=== PATIENT | male | born 1955 | race Caucasian/White ===

== ENCOUNTER 2016-09-24 05:44 | Observation (INO) | payer OTHER ==
[2016-09-19 15:41] LABS: HEMOGLOBIN 14.1 g/dL (13.6-17.8)
[2016-09-19 15:42] LABS: HEMATOCRIT 42.9 % (40.0-51.0)
[2016-09-19 15:59] LABS: CHLORIDE, SERUM 104 MMOL/L (96-112); CO2 (CARBON DIOXIDE) 30 MMOL/L (24-34); CREATININE 0.96 MG/DL (0.70-1.30); GFR AFRICAN AMERICAN 97 ML/MIN (>=60); GFR NON AFRICAN AMERICAN 84 ML/MIN (>=60); GLUCOSE, SERUM 74 MG/DL (60-99); POTASSIUM, SERUM 4.4 MMOL/L (3.5-5.3); SODIUM, SERUM 141 MMOL/L (135-148)
[2016-09-19 16:00] LABS: BUN (BLOOD UREA NITROGEN) 16 MG/DL (6-23)
--- NOTE | ~2016-09-24 | OP ---
Record Of Operation [facility] [address] [place]. [address] NAME: LORENE DUONG : 51 STATUS : ADM IN PAT#: [id number] AGE: 61 ADM/REG DATE : 09/24/16 MR#: [id number] REPORT SERV DATE: 09/25/16 DICTATED BY: JUAN J ECHEVARRIA II DATE: 09/25/16 REPORT STATUS : Draft TRANSCRIBED BY: MODL DATE: 09/25/16 DATE OF PROCEDURE: 09/24/2016 PREOPERATIVE DIAGNOSES: 1. Left lower extremity radiculopathy. 2. Remote history of L5-S1 laminectomy. 3. L4-5 stenosis, L5-S1 stenosis. POSTOPERATIVE DIAGNOSES: 1. Left lower extremity radiculopathy. 2. Remote history of L5-S1 laminectomy. 3. L4-5 stenosis, L5-S1 stenosis. PROCEDURE: 1. Revision laminectomy, L5-S1. 2. Laminectomy, L4-L5. 3. Use of the microscope and stereotactic spinal imaging. SURGEON: Juan J Echevarria M.D. FLUIDS: 1100 mL LR. ESTIMATED BLOOD LOSS: 30 mL. DRAINS: One drain. COMPLICATIONS: No complications. ANTIBIOTIC: Preoperatively. PREOPERATIVE HISTORY: This is a very friendly 61-year-old gentleman, who reports significant pain radiating into the left buttock, left leg, and into the lateral aspect of the leg primarily. He gets occasional pain in the calf. We discussed the pros and cons of surgery. DESCRIPTION OF PROCEDURE: After informed consent was obtained, the patient was brought to the operating room at his request and general anesthesia achieved. He was placed in the prone position, and the back was prepped and draped in a sterile fashion. The stereotactic spinal pin was placed into the right iliac crest, followed by completion of the intraoperative CT scan. Next, the minimally invasive incision was performed and the minimally invasive quadrant retractor placed. The microscope was then brought into place, and under microscopic visualization, the L4-L5 level was addressed with the high-speed bur. The facet capsule was maintained. The spinolaminar junction was now taken down with the high-speed bur, Kerrison rongeurs, and the curettes. The hypertrophic ligamentum flavum was identified and removed from the central canal. The Kerrison rongeurs were used to perform partial facetectomies to decompress the L5 nerve roots bilaterally. The L5 nerve roots were now found to be acceptably decompressed, following removal of portions of the facets and the Record Of Operation [address] [address] NAME: LORENE DUONG : 51 STATUS : ADM IN PAT#: [id number] AGE: 61 ADM/REG DATE : 09/24/16 MR#: [id number] REPORT SERV DATE: 09/25/16 DICTATED BY: JUAN J ECHEVARRIA II DATE: 09/25/16 REPORT STATUS : Draft TRANSCRIBED BY: MARLENA DATE: 09/25/16 majority of the ligamentum flavum. Next, we worked down to the L5-S1 level where the revision laminectomy was performed. We used a high-speed juli to remove additional facet on the left. The central canal was now identified. There was minimal scarring. The L5 nerve root was now found to be significantly compressed in the foraminal zone from the superior articular facet. We were able to work out into the foraminal zone and decompress the L5 nerve root. The S1 nerve root had moderate compression from the facet and some ligamentum flavum. The compression was now alleviated. At this point, the area was irrigated. Hemostasis was confirmed except for some mild cancellous bone bleeding, for which a deep drain was placed. Standard closure was performed, and the patient was extubated and transferred to PACU in stable condition. HECTOR/MARLENA Juan J Echevarria II, M.D. / [id number]
[~2016-09-24 05:44] MED LIST: ALAVERT10 MG PO; AMIT25 PO; ASA5GR PO; ASABAYER PO; ATEN25 PO; CELEXA20 PO; COREG3 PO; COREG6 PO; CRANBERRY300 MG OR; FISH-EPA1000 MG PO; HYGROTON 25 MG25 MG PO; IMDUR30 PO; KEPPRA750 MG PO; L20 PO; MAGOX4 PO; METHOC500B PO; MYCOSOINT TOP; NEUR300 PO; NEUR800 PO; NITROSTAT0.4 MG SL; NORCO1 TAB PO; OMEPRAZOLE PO; P20 PO; PLAVIX PO; POTASSIUM PO; PRILO PO; PRIN2.5 PO; PROAIR HFA INH; RAPAFLO4 MG PO; RAPAFLO8 MG PO; SYMBICORT 160/41 INH INH; TRAZODONE150 MG PO; ULTRAM50 PO; ZANAFLEX 4 MG TA4 MG PO; ZESTRIL10 MG PO; ZESTRIL2.5 MG PO; ZOCOR40 PO; [UNRECOGNIZED DRUG - OTHER] PO
[2016-09-25] MEDS ORDERED: PERCOCET 10/3251 TAB PO (09:32)
[2016-09-25] MEDS ORDERED: V2 PO (09:32)
[2017-01-02] MEDS ORDERED: FLEX PO (12:07)
[2017-02-05] MEDS ORDERED: NORCO1 TA2 PO (15:04)
[2017-02-05] MEDS ORDERED: FLONASE NAS (15:04)
[2017-02-05] MEDS ORDERED: ASA5GR PO (15:04)
[2017-02-05] MEDS ORDERED: PRILO PO (15:05)
[2017-02-05] MEDS ORDERED: IMDUR30 PO (15:05)
[2017-02-05] MEDS ORDERED: FLOMAX4 PO (15:06)
[2017-02-05] MEDS ORDERED: VITAMIN B-122500 MCG SL (15:06)
[2017-02-05] MEDS ORDERED: KLOR-CON 1010 MEQ PO (15:06)
[2017-02-05] MEDS ORDERED: VITAMIN D31000 UNIT PO (15:07)
[2017-03-05] MEDS ORDERED: [UNRECOGNIZED DRUG - OTHER] PO (06:55)
[2017-03-06] MEDS ORDERED: PLAVIX PO (10:37)
[2017-03-06] MEDS ORDERED: MULTIVITAMI1 PO (10:38)
== END 2016-09-25 17:31 | disposition home or self-care (01) ==
LOC: SDC 05:44 → SDC/OF 11:00 → 3SO 12:53
PROVIDERS: Orthopaedic Surgery
PROC: 01NB0ZZ Release Lumbar Nerve, Open Approach (ICD-10-PCS; principal; 2016-09-24 07:00)
DX: M48.06 Spinal stenosis, lumbar region (principal); M48.07 Spinal stenosis, lumbosacral region; M54.16 Radiculopathy, lumbar region; I25.2 Old myocardial infarction; M19.90 Unspecified osteoarthritis, unspecified site; H10.10 Acute atopic conjunctivitis, unspecified eye; J45.909 Unspecified asthma, uncomplicated; G47.33 Obstructive sleep apnea (adult) (pediatric); I25.10 Atherosclerotic heart disease of native coronary artery without angina pectoris; E78.00 Pure hypercholesterolemia, unspecified; H91.90 Unspecified hearing loss, unspecified ear; M10.9 Gout, unspecified; K21.9 Gastro-esophageal reflux disease without esophagitis; K44.9 Diaphragmatic hernia without obstruction or gangrene; F41.9 Anxiety disorder, unspecified; F32.9 Major depressive disorder, single episode, unspecified; I10 Essential (primary) hypertension; Z88.0 Allergy status to penicillin; Z79.82 Long term (current) use of aspirin; Z79.899 Other long term (current) drug therapy; Z98.890 Other specified postprocedural states; Z83.3 Family history of diabetes mellitus; Z82.49 Family history of ischemic heart disease and other diseases of the circulatory system; Z95.1 Presence of aortocoronary bypass graft; Z23 Encounter for immunization
CPT/HCPCS: 80048; 85014; 85018; 88304; 88311; 90686; 93005; 96374; 96375; 96376; 97116-GP; 97161-GP; A9270-GY; G0008; G0378; J0690; J1170; J2250; J2370; J2405; J2550; J2710; J3010

== ENCOUNTER 2016-10-22 13:18 | Inpatient (IN) | payer OTHER ==
--- NOTE | ~2016-10-22 | HP ---
History And Physical [place] [id number] [facility] [place]. [address] NAME: LORENE DUONG : 51 STATUS : DIS IN PAT#: [id number] AGE: 61 ADM/REG DATE : 10/22/16 MR#: [id number] REPORT SERV DATE: 10/28/16 DICTATED BY: JUAN J ECHEVARRIA II DATE: 10/28/16 REPORT STATUS : Draft TRANSCRIBED BY: MODL DATE: 10/28/16 DATE OF ADMISSION: 10/22/2016 CHIEF COMPLAINT: Low back pain. HISTORY OF PRESENT ILLNESS: A very friendly 61-year-old gentleman who is admitted for severe low back pain without significant radiation into the legs. The patient had surgery on 09/24/2016, which was a laminectomy. His legs are doing much better, he reports. PAST MEDICAL HISTORY: As above, plus he is disabled. MEDICATIONS: Please see the MAR. REVIEW OF SYSTEMS: The patient denies any bowel or bladder changes. Denies any chest pain or shortness of breath. PHYSICAL EXAMINATION: GENERAL: Reveals a gentleman, in no acute distress. He is awake, alert, and oriented. NECK: Supple. CHEST: Reveals no stridor on inspiration or expiration. CARDIOVASCULAR: Regular rate and rhythm when I palpate the radial pulse. ABDOMEN: Soft. BACK: Reveals no erythema or drainage. There is some mild edema consistent with postoperative changes. His skin is well healed. IMAGING DATA: Imaging does show some severe Modic changes at L4-S1 with postoperative changes. There is some seroma, but no obvious infection. IMPRESSION AND PLAN: Severe low back pain, status post surgery. His surgery has done well to decrease his leg pain. If his back pain does not improve, we may have to consider surgery to stabilize the area. His pain is likely either discogenic or potentially from instability following the laminectomy. We will have Physical Therapy work with him and closely follow his progress. HECTOR/MARLENA Jaun J Echevarria II, M.D. / [id number] CC: Juan J Echevarria II, M.D.
[~2016-10-22 13:18] MED LIST changes: +PERCOCET 10/3251 TAB PO; +V2 PO
[2016-10-22 16:02] LABS: BASOPHILS 0.1 %; BASOPHILS ABSOLUTE 0.01 10/3/uL (0.0-0.16); EOSINOPHILS ABSOLUTE 0.33 10/3/uL (0.0-0.53); HEMOGLOBIN 12.7 g/dL (13.6-17.8); IMMATURE GRANULOCYTES 0.1 %; IMMATURE GRANULOCYTES ABSOLUTE 0.01 10/3/uL (0.0-0.11); LYMPHOCYTES 13.4 %; MEAN CORPUS HGB CONC 33.9 g/dL (32.0-36.0); MEAN CORPUSCULAR VOLUME 88.4 fL (80-100); MEAN PLATELET VOLUME 9.6 fL (9.2-13.0); MONOCYTES 12.2 %; NEUTROPHILS 70.2 %; NEUTROPHILS ABSOLUTE 5.78 10/3/uL (2.02-8.40); PLATELET COUNT 188 10/3/uL (150-400); RBC DISTRIBUTION WIDTH 14.7 % (12.0-16.0); RED CELL COUNT 4.24 10/6/uL (4.7-6.1); WHITE BLOOD CELLS 8.2 10/3/uL (4.5-10.5)
[2016-10-22 16:05] LABS: HEMATOCRIT 37.5 % (40.0-51.0); MANUAL DIFF NO %
[2016-10-22 16:19] LABS: CALCIUM, SERUM 8.4 MG/DL (8.5-10.4); CHLORIDE, SERUM 96 MMOL/L (96-112); CO2 (CARBON DIOXIDE) 31 MMOL/L (24-34); CREATININE 1.06 MG/DL (0.70-1.30); GFR AFRICAN AMERICAN 86 ML/MIN (>=60); GFR NON AFRICAN AMERICAN 74 ML/MIN (>=60); SODIUM, SERUM 135 MMOL/L (135-148)
[2016-10-22 16:20] LABS: BUN (BLOOD UREA NITROGEN) 10 MG/DL (6-23); GLUCOSE, SERUM 123 MG/DL (60-99); POTASSIUM, SERUM 3.5 MMOL/L (3.5-5.3)
[2016-10-22] MEDS ORDERED: RAPAFLO PO (20:53)
[2016-10-22] MEDS ORDERED: NITROSTAT0.4 MG SL (20:54)
[2016-10-22] MEDS ORDERED: *UNABLE3 (20:54)
[2016-10-22] MEDS ORDERED: GABAPENTIN PO (20:54)
[2016-10-23] MEDS ORDERED: ZOCOR40 PO (13:19)
[2016-10-23] MEDS ORDERED: RAPAFLO8 MG PO (13:19)
[2016-10-23] MEDS ORDERED: HYGROTON 25 MG25 MG PO (13:19)
[2016-10-23] MEDS ORDERED: ATEN25 PO (13:19)
[2016-10-23] MEDS ORDERED: VITAMIN D1000 UNI1 PO (13:20)
[2016-10-23] MEDS ORDERED: MAGOX4 PO (13:20)
[2016-10-23] MEDS ORDERED: ASABAYER PO (13:20)
[2016-10-23] MEDS ORDERED: VITAMIN B PO (13:21)
[2016-10-23] MEDS ORDERED: FISH-EPA1000 MG PO (13:21)
[2016-10-23] MEDS ORDERED: GENTLE IRON PO (13:21)
[2016-10-23] MEDS ORDERED: NEUR300 PO (13:22)
[2016-10-23] MEDS ORDERED: V2 PO (13:22)
[2016-10-23] MEDS ORDERED: POT GLUCONAT2.5 MEQ PO (13:22)
[2016-10-23] MEDS ORDERED: NORCO1 TAB PO (13:23)
[2016-10-23] MEDS ORDERED: NITROSTAT0.4 MG SL (13:23)
[2017-01-02] MEDS ORDERED: FLEX PO (12:07)
[2017-02-05] MEDS ORDERED: ASA5GR PO (15:04)
[2017-02-05] MEDS ORDERED: FLONASE NAS (15:04)
[2017-02-05] MEDS ORDERED: NORCO1 TA2 PO (15:04)
[2017-02-05] MEDS ORDERED: IMDUR30 PO (15:05)
[2017-02-05] MEDS ORDERED: PRILO PO (15:05)
[2017-02-05] MEDS ORDERED: VITAMIN B-122500 MCG SL (15:06)
[2017-02-05] MEDS ORDERED: KLOR-CON 1010 MEQ PO (15:06)
[2017-02-05] MEDS ORDERED: FLOMAX4 PO (15:06)
[2017-02-05] MEDS ORDERED: VITAMIN D31000 UNIT PO (15:07)
[2017-03-05] MEDS ORDERED: [UNRECOGNIZED DRUG - OTHER] PO (06:55)
[2017-03-06] MEDS ORDERED: PLAVIX PO (10:37)
[2017-03-06] MEDS ORDERED: MULTIVITAMI1 PO (10:38)
== END 2016-10-24 15:28 | disposition home or self-care (01) | DRG 948 ==
LOC: 3SO 13:18
PROVIDERS: Orthopaedic Surgery
DX: G89.18 Other acute postprocedural pain (principal)
CPT/HCPCS: 72148; 80048; 82962; 85025; 97116-GP; 97161-GP; A9270-GY

== ENCOUNTER 2016-12-11 17:02 | Emergency (ER) | payer OTHER ==
[~2016-12-11 17:02] MED LIST changes: +*UNABLE3; +GABAPENTIN PO; +GENTLE IRON PO; +POT GLUCONAT2.5 MEQ PO; +RAPAFLO PO; +VITAMIN B PO; +VITAMIN D1000 UNI1 PO
[2016-12-11 17:19] LABS: BASOPHILS 0.4 %; BASOPHILS ABSOLUTE 0.02 10/3/uL (0.0-0.16); EOSINOPHILS 7.4 %; EOSINOPHILS ABSOLUTE 0.37 10/3/uL (0.0-0.53); ER CBC TAT 0 Hrs 07 Mins; HEMOGLOBIN 14.3 g/dL (13.6-17.8); IMMATURE GRANULOCYTES 0.2 %; IMMATURE GRANULOCYTES ABSOLUTE 0.01 10/3/uL (0.0-0.11); LYMPHOCYTES 34.2 %; MEAN CORPUS HGB CONC 33.6 g/dL (32.0-36.0); MEAN CORPUSCULAR VOLUME 89.1 fL (80-100); MEAN PLATELET VOLUME 9.5 fL (9.2-13.0); MONOCYTES 8.9 %; MONOCYTES ABSOLUTE 0.44 10/3/uL (0.21-1.20); NEUTROPHILS 48.9 %; NEUTROPHILS ABSOLUTE 2.43 10/3/uL (2.02-8.40); RBC DISTRIBUTION WIDTH 14.4 % (12.0-16.0); RED CELL COUNT 4.77 10/6/uL (4.7-6.1)
[2016-12-11 17:21] LABS: HEMATOCRIT 42.5 % (40.0-51.0); MANUAL DIFF NO %; PLATELET COUNT 259 10/3/uL (150-400)
[2016-12-11 17:26] LABS: PROTIME (NOT ORD) 13.2 SEC (12.0-14.5)
[2016-12-11 17:35] LABS: BUN (BLOOD UREA NITROGEN) 15 MG/DL (6-23); CALCIUM, SERUM 9.5 MG/DL (8.5-10.4); CHEST PAIN PROFILE TAT 0 Hrs 22 Mins; CHLORIDE, SERUM 103 MMOL/L (96-112); CO2 (CARBON DIOXIDE) 33 MMOL/L (24-34); CREATININE 1.03 MG/DL (0.70-1.30); GFR AFRICAN AMERICAN 89 ML/MIN (>=60); GFR NON AFRICAN AMERICAN 77 ML/MIN (>=60); GLUCOSE, SERUM 83 MG/DL (60-99); POTASSIUM, SERUM 3.6 MMOL/L (3.5-5.3); SODIUM, SERUM 140 MMOL/L (135-148); TROPONIN I <0.02 NG/ML (<0.05)
[2016-12-11 17:48] LABS: ASCORBIC ACID (UR NOT ORDER) NEG (NEG); BILIRUBIN, URINE NEGATIVE (NEG); ER URINALYSIS TAT 0 Hrs 13 Mins; KETONE, URINE NEGATIVE (NEG); LEUKOCYTE ESTERASE(NOT OR NEG (NEG); NITRITE (URINE) NEG (NEG); WBC (NOT ORDERED) (RFLEX) 1 (0-5)
[2017-01-02] MEDS ORDERED: FLEX PO (12:07)
[2017-02-05] MEDS ORDERED: FLONASE NAS (15:04)
[2017-02-05] MEDS ORDERED: NORCO1 TA2 PO (15:04)
[2017-02-05] MEDS ORDERED: ASA5GR PO (15:04)
[2017-02-05] MEDS ORDERED: PRILO PO (15:05)
[2017-02-05] MEDS ORDERED: IMDUR30 PO (15:05)
[2017-02-05] MEDS ORDERED: FLOMAX4 PO (15:06)
[2017-02-05] MEDS ORDERED: KLOR-CON 1010 MEQ PO (15:06)
[2017-02-05] MEDS ORDERED: VITAMIN B-122500 MCG SL (15:06)
[2017-02-05] MEDS ORDERED: VITAMIN D31000 UNIT PO (15:07)
[2017-03-05] MEDS ORDERED: [UNRECOGNIZED DRUG - OTHER] PO (06:55)
[2017-03-06] MEDS ORDERED: PLAVIX PO (10:37)
[2017-03-06] MEDS ORDERED: MULTIVITAMI1 PO (10:38)
== END 2016-12-11 19:11 | disposition home or self-care (01) ==
LOC: ER 17:02
PROVIDERS: Emergency Medicine
DX: R53.1 Weakness (principal); R11.2 Nausea with vomiting, unspecified; I10 Essential (primary) hypertension; J44.9 Chronic obstructive pulmonary disease, unspecified; I25.10 Atherosclerotic heart disease of native coronary artery without angina pectoris; Z88.0 Allergy status to penicillin; Z95.5 Presence of coronary angioplasty implant and graft; Z95.1 Presence of aortocoronary bypass graft; Z91.011 Allergy to milk products; Z79.899 Other long term (current) drug therapy
CPT/HCPCS: 70450; 71010; 80048; 81001; 83735; 84484; 85025; 85610; 85730; 93005; 99285